=== PATIENT | male | born 1955 | race Caucasian/White ===

== ENCOUNTER 2017-06-05 11:10 | Emergency (ER) | payer OTHER ==
[2017-06-05 11:19] VITALS: BP 136/94; PULSE 87; TEMP 98.1; BMI 28.2
[2017-06-05] MEDS ORDERED: METHOCARBAMOL 500 MG TABLET PO ONE (12:10)
--- NOTE | 2017-06-05 12:10 | PDOC ---
History of Present Illness - General Chief Complaint: Pain Stated Complaint: BUTTOCK, LEFT LEG PAIN Time Seen by Provider: 06/05/17 12:00 History Source: Patient Exam Limitations: No Limitations - History of Present Illness Initial Comments: 61 yo M history hyperlipidemia presents with L buttock pain radiating down his leg. He states he has had similar symptoms from a muscle spasm in his buttock in the past. Previously he was initially treated with pain medication and muscle relaxers, then subsequently physical therapy. He states that he did the stretches that his PT taught him when he got the spasm this morning, but it did not help. He did not take anything for pain. Denies weakness, numbness. + Shooting pain to the L buttock and thigh. No back pain. No fever. Past History - Past Medical History Allergies/Adverse Reactions: Allergies Allergy/AdvReac Type Severity Reaction Status Date / Time Penicillins Allergy Verified 06/05/17 11:12 Home Medications: Ambulatory Orders Acetaminophen [Tylenol] 325 mg PO ASDIR 06/05/17 Atorvastatin Ca [Lipitor] 40 mg PO HS 06/05/17 Methocarbamol [Robaxin -] 500 mg PO BID PRN #14 tablet 06/05/17 Naproxen Sodium [Aleve] 220 mg PO ASDIR 06/05/17 Tramadol HCl [Ultram -] 50 mg PO Q6H PRN #12 tablet MDD 4 tabs 06/05/17 COPD: No Hypercholesterolemia: Yes Other medical history: CATARACTS - Suicide/Smoking/Psychosocial Hx Smoking History: Never smoked Have you smoked in the past 12 months: No Hx Alcohol Use: No Review of Systems - Review of Systems Able to Perform ROS?: Yes Comments:: GENERAL/CONSTITUTIONAL: No fever or chills. No weakness. HEAD, EYES, EARS, NOSE AND THROAT: No change in vision. No ear pain or discharge. No sore throat. CARDIOVASCULAR: No chest pain or shortness of breath. RESPIRATORY: No cough, wheezing, or hemoptysis. GASTROINTESTINAL: No nausea, vomiting, diarrhea or constipation. GENITOURINARY: No dysuria, frequency, or change in urination. MUSCULOSKELETAL: No joint or muscle swelling. No neck or back pain. +L buttock pain radiating to the L thigh. SKIN: No rash NEUROLOGIC: No headache, vertigo, loss of consciousness, or change in strength/ sensation. ENDOCRINE: No increased thirst. No abnormal weight change. HEMATOLOGIC/LYMPHATIC: No anemia, easy bleeding, or history of blood clots. ALLERGIC/IMMUNOLOGIC: No hives or skin allergy. *Physical Exam - Vital Signs Last Vital Signs Temp Pulse Resp BP Pulse Ox 98.1 F 87 18 136/94 97 06/05/17 11:10 06/05/17 11:10 06/05/17 11:10 06/05/17 11:10 06/05/17 11:10 - Physical Exam Comments: GENERAL: Awake, alert, and fully oriented, in no acute distress HEAD: No signs of trauma EYES: PERRLA, EOMI, sclera anicteric, conjunctiva clear ENT: Auricles normal inspection, hearing grossly normal, nares patent, oropharynx clear without exudates. Moist mucosa NECK: Normal ROM, supple, no lymphadenopathy, JVD, or masses LUNGS: Breath sounds equal, clear to auscultation bilaterally. No wheezes, and no crackles HEART: Regular rate and rhythm, normal S1 and S2, no murmurs, rubs or gallops ABDOMEN: Soft, nontender, normoactive bowel sounds. No guarding, no rebound. No masses EXTREMITIES: Normal range of motion, no edema. No clubbing or cyanosis. No cords, erythema, or tenderness NEUROLOGICAL: Cranial nerves II through XII grossly intact. Normal speech. Motor and sensation intact. SLR positive at 45 degrees. SKIN: Warm, Dry, normal turgor, no rashes or lesions noted. Medical Decision Making - Medical Decision Making 06/05/17 12:09 Sciatica likely due to piriformis spasm. Will treat with analgesics and muscle relaxers. 06/05/17 12:43 Pt reports improvement. Able to ambulate more comfortably, also able to do his stretches. Stable for DC home. *DC/Admit/Observation/Transfer Diagnosis at time of Disposition: Spasm of left piriformis muscle Sciatica Qualifiers: Laterality: left Qualified Code(s): M54.32 - Sciatica, left side - Discharge Dispostion Disposition: HOME Condition at time of disposition: Stable Admit: No - Prescriptions Prescriptions: Methocarbamol [Robaxin -] 500 mg PO BID PRN #14 tablet PRN Reason: Muscle Spasms Tramadol HCl [Ultram -] 50 mg PO Q6H PRN #12 tablet MDD 4 tabs PRN Reason: Severe Pain - Referrals - Patient Instructions - Post Discharge Activity
[2017-06-05] MEDS ORDERED: METHOCARBAMOL 500 MG TABLET ONE (12:13)
== END 2017-06-05 13:00 | disposition home or self-care (01) ==
LOC: FER 11:10
DX: M62.838 Other muscle spasm (principal); M54.32 Sciatica, left side; E78.00 Pure hypercholesterolemia, unspecified
CPT/HCPCS: 99283-25